=== PATIENT | male | born 1975 | race Caucasian/White ===

== ENCOUNTER 2020-11-01 20:56 | Inpatient (IN) | payer OTHER ==
[~2020-11-01] VITALS: Ht 175.3 cm; Wt 88.5 kg
[2020-11-01 21:03] VITALS: BP 107/79
[2020-11-01] MEDS ORDERED: TESSALON PERLE100 M1 PO (21:09)
[2020-11-01] MEDS ORDERED: DECADRON6 MG PO (21:10)
[2020-11-01] MEDS ORDERED: ZOFRAN ODT4 MG DISSOLVE (21:10)
[2020-11-01 21:59] LABS: BE 1.9 mmol/L (-2 to +3); PCO2 35.1 mmHg (35.0-45.0); pH 7.472 (7.340-7.450)
[2020-11-01 22:01] LABS: PO2 58.6 mmHg (75.0-100.0)
[2020-11-01 22:22] LABS: ABSOLUTE LYMPHOCYTES 0.9 thou/uL (0.8-5.3); ABSOLUTE MONOCYTES 1.2 thou/uL (0.0-1.2); ABSOLUTE NEUTROPHILS 7.4 thou/uL (1.6-8.1); BASOPHILS 0.2 %; HEMATOCRIT 39.7 % (42.0-52.0); HEMOGLOBIN 13.7 gm/dL (14.0-18.0); LYMPHOCYTES 9.3 %; MCH 28.2 pg (26.0-34.0); MCHC 34.5 g/dL (28.0-37.0); MCV 81.7 fL (80.0-100.0); MONOCYTES 12.8 %; MPV 6.9 fl. (7.2-11.1); NUCLEATED RBCS 0 /100WBC; PLATELET COUNT* 466 thou/uL (150-400); POLYS 77.7 %; RBC 4.86 mil/uL (4.50-6.00); RDW-CV 13.9 % (10.5-14.5); WBC 9.6 thou/uL (4.0-11.0)
[2020-11-01 22:31] LABS: CALCIUM 8.3 mg/dL (8.5-10.1); POTASSIUM 3.9 mmol/L (3.5-5.1)
[2020-11-01 22:36] LABS: ALBUMIN 2.9 g/dL (3.4-5.0); MAGNESIUM 2.1 mg/dL (1.8-2.4); TOTAL BILIRUBIN 0.3 mg/dL (<0.1-1.0); TOTAL PROTEIN 7.2 g/dL (6.4-8.2)
[2020-11-02 05:01] VITALS: BP 120/74
--- NOTE | 2020-11-02 09:17 | EKG ---
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
[2020-11-02 09:30] VITALS: BP 115/79
[2020-11-02 14:00] VITALS: BP 120/73
[2020-11-02 15:05] LABS: URINE BILIRUBIN NEGATIVE (Negative); URINE BLOOD NEGATIVE (Negative); URINE CLARITY CLEAR; URINE COLOR YELLOW; URINE GLUCOSE-RANDOM NEGATIVE (Negative); URINE KETONES NEGATIVE (Negative); URINE LEUKOCYTES-REFLEX NEGATIVE (Negative); URINE NITRITE-REFLEX NEGATIVE (Negative); URINE PROTEIN NEGATIVE (Negative); URINE SPECIFIC GRAVITY 1.025 (1.005-1.030); URINE UROBILINOGEN 0.2 E.U./dl (0.2-1.0)
[2020-11-02 15:25] VITALS: BP 120/73
[2020-11-02 15:40] VITALS: BP 126/76
--- NOTE | 2020-11-02 18:38 | NUR ---
RECEIVED REPORT FROM ROBERTA GARNETT. PT ARRIVED ON UNIT AROUND 1540. ADMIT DONE. IV INTACT. HEART MONITOR ATTACHED AT SR. PT UP ADLIB TOLERATED. MEDS GIVEN PER MAR. HOURLY ROUNDING PERFORMED. COVID POSITIVE. ISOLATION INTACT. NO PAIN. HOME MEDS SENT TO PHARMACY. CALL LIGHT WITH IN REACH. WILL CONTINUE TO MONITOR.
[2020-11-02 20:00] VITALS: BP 129/78
[2020-11-03 00:28] VITALS: BP 120/79
[2020-11-03 04:20] VITALS: BP 123/80
--- NOTE | 2020-11-03 05:37 | NUR ---
ASSUMED CARE OF PT AFTER REPORT AT 1930. PT A&OX4. VSS. PHYSICAL ASSESSMENT COMPLETED AND CHARTED. PT ON O2 NC6L. PT TRACING SR ON TELE. PT UPADLIB TO RESTROOM. PT DENIES ANY PAIN. MAINTAINED ON ENHANCED ISOLATION. CALL OH SPENCER.
[2020-11-03 06:08] LABS: BE 0.1 mmol/L (-2 to +3); PCO2 33.1 mmHg (35.0-45.0); PO2 66.8 mmHg (75.0-100.0); pH 7.464 (7.340-7.450)
[2020-11-03 08:00] VITALS: BP 111/70
[2020-11-03] MEDS ORDERED: DECADRON6 MG PO (09:55)
[2020-11-03 12:56] VITALS: BP 118/70
[2020-11-03 16:09] VITALS: BP 115/72
--- NOTE | 2020-11-03 19:17 | NUR ---
received report around 714. assumed care. vs and assessment as charted. iv intact. heart monitor attached sr. pt up adilb. nc 3L currently. meds given per jun. hourly rounding performed. CTA of chest done. told pt of results. updated on pt. mom updated on pt. call light with in reach.
[2020-11-03 20:00] VITALS: BP 115/77
[2020-11-04 00:46] VITALS: BP 115/72
[2020-11-04 05:59] VITALS: BP 103/65
--- NOTE | 2020-11-04 06:47 | NUR ---
ASSUMED CARE OF PT AFTER REPORT AT 1930. PT A&OX4. VSS. PHYSICAL ASSESMENT COMPLETED AND CHARTED. PT ON O2 AT 3L NC. PT TRACING SR ON TELE. PT UPADLIB TO RESTROOM. PT DENIES ANY PAIN. MAINTAINED ON ENHANCED PRECAUTION. CALL LIGHT WITHIN REACH.
[2020-11-04 08:00] VITALS: BP 115/71
[2020-11-04 12:00] VITALS: BP 119/76
--- NOTE | 2020-11-04 14:47 | NUR ---
Covid positive. Anticipate dc tomorrow. On 2L, continue to wean. Will need ex ox at dc, to determine home o2 dc needs. Pt resides at home with . Independent. No DME. No hx of HH or SNF. Following.
[2020-11-04 16:12] VITALS: BP 125/78
--- NOTE | 2020-11-04 17:42 | NUR ---
RECEIVED REPORT AROUND 0715. ASSUMED CARE. VS AND ASSESSMENT CHARTED. IV INTACT. HEART MONITOR ATTACHED AT SR. ISOLATION INTACT. MEDS GIVEN PER JUN. HOURLY ROUNDING PERFORMED. 3L NC. UP ADLIB. POSSIBLE D/C TOMORROW. CALL LIGHT WITH IN REACH. WILL CONTINUE TO MONITOR. NO PAIN THIS SHIFT.
[2020-11-04 19:45] VITALS: BP 128/76
[2020-11-05 00:43] VITALS: BP 128/84
[2020-11-05 04:06] LABS: HEMATOCRIT 34.5 % (42.0-52.0); HEMOGLOBIN 11.7 gm/dL (14.0-18.0); MCH 27.7 pg (26.0-34.0); MCHC 33.9 g/dL (28.0-37.0); MCV 81.8 fL (80.0-100.0); MPV 6.8 fl. (7.2-11.1); NUCLEATED RBCS 0 /100WBC; PLATELET COUNT* 452 thou/uL (150-400); RBC 4.21 mil/uL (4.50-6.00); RDW-CV 13.5 % (10.5-14.5); WBC 16.8 thou/uL (4.0-11.0)
[2020-11-05 04:14] LABS: ALBUMIN 2.1 g/dL (3.4-5.0); CALCIUM 7.9 mg/dL (8.5-10.1); CREATININE 0.8 mg/dL (0.6-1.3); POTASSIUM 4.1 mmol/L (3.5-5.1); TOTAL BILIRUBIN 0.4 mg/dL (<0.1-1.0); TOTAL PROTEIN 5.9 g/dL (6.4-8.2)
[2020-11-05 04:43] VITALS: BP 116/77
--- NOTE | 2020-11-05 04:58 | NUR ---
PT SLEPT MOST OF SHIFT. ASSESSMENT DOCUMENTED. MEDS GIVEN PER E-MAR. IV PATENT, FLUIDS INFUSING. TYLENOL GIVEN FOR BACK PAIN. PT TITRATED TO ROOM AIR WHILE RESTING AND SLEEPING. ISOLATION MAINTAINED. PT ABLE TO MAKE NEEDS KNOWN, WILL CONTINUE WITH PLAN OF CARE.
[2020-11-05 05:00] LABS: ABSOLUTE LYMPHOCYTES 0.7 thou/uL (0.8-5.3); ABSOLUTE MONOCYTES 0.3 thou/uL (0.0-1.2); ABSOLUTE NEUTROPHILS 15.8 thou/uL (1.6-8.1); METAMYELOCYTES 1 %; PLATELET ESTIMATE ADEQUATE
[2020-11-05 08:00] VITALS: BP 114/80
[2020-11-05] MEDS ORDERED: DEXAMETHASONE6 MG PO (09:47)
--- NOTE | 2020-11-05 12:46 | NUR ---
Pt medically stable to dc to home today with home o2. CM faxed o2 referral to Aby at [facility], await approve and delivery of o2 tank. No other needs.
[2020-11-05 13:48] VITALS: BP 114/80
--- NOTE | 2020-11-05 14:45 | NUR ---
RECEIVED REPORT AROUND 0715. ASSUMED CARE. VS AND ASSESSMENT CHARTED. IV INTACT THIS AM. HEART MONITOR ATTACHED THIS AM AT SR. PT ROOM AIR. REST AND EXERCISE DONE. REQUIRED O2 3L ON EXCERSION. DISCHARGE ORDERS RECEIVED. MEDS GIVEN PER JUN. HOURLY ROUNDING PERFORMED. IV TAKEN OUT. HEART MONITOR OFF. DISCHARGE PACKET GIVEN TO PT. COMMUNICATED UNDERSTANDING. O2 SET UP THROUGH CASE MANAGEMENT. O2 TANK GIVEN TO PT. PT LEFT UNIT VIA WHEEL CHAIR WITH ALL BELONGINGS AND NURSING STAFF AT 1445.
== END 2020-11-05 14:45 | disposition home or self-care (01) | DRG 177 ==
LOC: M.ERS 20:56 → M.ORTHSURG 11-02 00:20 → M.TBA-ER 11-02 00:20 → M.ORTHSURG 11-02 15:44
PROVIDERS: Internal Medicine; Personal Emergency Response Attendant; ADMIT Internal Medicine; ATTEND Internal Medicine
PROC: XW033E5 Introduction of Remdesivir Anti-infective into Peripheral Vein, Percutaneous Approach, New Technology Group 5 (ICD-10-PCS; principal; 2020-11-03)
DX: U07.1 COVID-19 (principal); J12.82 Pneumonia due to coronavirus disease 2019; J96.01 Acute respiratory failure with hypoxia; E87.3 Alkalosis; Z79.899 Other long term (current) drug therapy; Z87.891 Personal history of nicotine dependence

== ENCOUNTER 2020-11-16 11:49 | Inpatient (IN) | payer OTHER ==
[~2020-11-16] VITALS: Ht 175.3 cm; Wt 90.7 kg
--- NOTE | ~2020-11-16 | CON ---
[address] [address] CONSULTATION Name: FILIBERTO RG Room: [address] IN .R.#: [id number] Admission: 11/16/20 Attend Phys: Lori Mcnally Discharge: Date of : 71 Report #: [id number] THIS REPORT FOR: cc: Venecia Oden Kathryn DO Pervez, Adeel MD ~ DATE OF CONSULTATION: 11/17/2020 REQUESTING PHYSICIAN: Pankaj Lozano DO. INDICATION FOR CONSULTATION: Acute pulmonary emboli. HISTORY OF PRESENT ILLNESS: A 45-year-old gentleman, past medical history is as mentioned below. He is a lifetime nonsmoker, does not have a previous history of a cardiac or respiratory disease. The patient was recently admitted to this hospital and was treated for COVID-19. Initially was diagnosed he states with COVID-19 on 10/20. He is now admitted again with increasing shortness of breath. He has also had chest pain with respiration and coughing. He has had a cough. There is not much sputum. He does not have upper respiratory complaints. There is no swelling of lower extremities. REVIEW OF SYSTEMS: Negative for 12 points except as mentioned above. PAST MEDICAL HISTORY: Recent COVID-19 as above. SOCIAL HISTORY: Lifetime nonsmoker. No known history of heavy alcohol use or illegal drug use. CURRENT MEDICATIONS: List in [employer] reviewed. HOME MEDICATIONS: He briefly received azithromycin and remdesivir during the last hospitalization. He was discharged on dexamethasone. He was not on antibiotics upon discharge. FAMILY HISTORY: No pertinent family history. PHYSICAL EXAMINATION: GENERAL: Alert, awake and oriented, does not appear to be in any distress. VITAL SIGNS: Has a pulse of 85 and a blood pressure of 119/79, saturating 94%. He is on room air. His respiratory rate is 16-17. He is afebrile. HEENT: Head is normocephalic and atraumatic. NECK: Does not show raised JVP. Chest is clear to auscultation. HEART: [place] [id number] CONSULTATION Name: FILIBERTO RG Room: [address] IN [facility]#: [id number] Admission: 11/16/20 Attend Phys: Lori Mcnally Discharge: Date of : 71 Report #: [id number] ABDOMEN: Soft and nontender. EXTREMITIES: Lower extremities show no edema and no calf tenderness. LABORATORY DATA: Chest x-ray and CTA chest are reviewed. I reviewed the films of both the studies above myself. ASSESSMENT AND PLAN: 1. Acute pulmonary emboli. I agree with anticoagulation. This can be switched over to oral. Recommend continuing with anticoagulation for the next 3 months, at which point recommend doing a CTA chest again and then we will reassess duration of therapy. I will be happy to see the patient again in about 3 months in the office and follow up on this. Recommend obtaining venous Dopplers. Also recommend obtaining an echocardiogram. If not otherwise indicated per the echo and venous Doppler results, then it is okay for the patient to be discharged tomorrow morning from a pulmonary point of view. 2. Pulmonary infiltrates. He has had recent COVID-19; however, some of the infiltrates are lobar; therefore, I agree with antibiotics. He is currently on Zithromax as well as ceftriaxone. May consider switching this over to oral Levaquin upon discharge. May consider a total of 7 days of therapy including the days he receives in the hospital. 3. Recent COVID-19. I agree with dexamethasone considering the development of acute pulmonary emboli as above. I suggest gradually tapering dexamethasone over the next 2 weeks. Dexamethasone can be switched over to oral. Thanks for this consultation. By: 1650 [id number] Prince MD /nt
[~2020-11-16 11:49] MED LIST: DECADRON6 MG PO; DEXAMETHASONE6 MG PO; TESSALON PERLE100 M1 PO; ZOFRAN ODT4 MG DISSOLVE
[2020-11-16 11:56] VITALS: BP 114/79
[2020-11-16 12:21] LABS: HEMATOCRIT 45.8 % (42.0-52.0); HEMOGLOBIN 14.5 gm/dL (14.0-18.0); MCH 26.6 pg (26.0-34.0); MCHC 31.7 g/dL (28.0-37.0); MCV 83.8 fL (80.0-100.0); MPV 7.2 fl. (7.2-11.1); NUCLEATED RBCS 0 /100WBC; PLATELET COUNT* 536 thou/uL (150-400); RBC 5.47 mil/uL (4.50-6.00); RDW-CV 14.3 % (10.5-14.5); WBC 20.6 thou/uL (4.0-11.0)
[2020-11-16 12:32] LABS: ANION GAP 11 mmol/L (7-16); BUN 25 mg/dL (7-18); CHLORIDE 104 mmol/L (98-107); CO2 24 mmol/L (21-32); CREATININE 1.2 mg/dL (0.6-1.3); GLUCOSE 142 mg/dL (70-99); POTASSIUM 4.3 mmol/L (3.5-5.1); SODIUM 139 mmol/L (136-145)
[2020-11-16 12:44] LABS: ALBUMIN 2.8 g/dL (3.4-5.0); ALKALINE PHOSPHATASE 61 U/L (46-116); CALCIUM 8.4 mg/dL (8.5-10.1); CK-MB MASS < 0.5 ng/mL (<0.5-3.6); LIPASE 231 U/L (73-393); MAGNESIUM 2.3 mg/dL (1.8-2.4); NT-PRO BRAIN NAT PEPTIDE 412 pg/mL (<300); SGOT 15 U/L (15-37); SGPT 98 U/L (30-65); TOTAL BILIRUBIN 0.2 mg/dL (<0.1-1.0)
[2020-11-16 13:02] LABS: ABSOLUTE EOSINOPHILS 0.2 thou/uL (0.0-0.7); ABSOLUTE LYMPHOCYTES 3.1 thou/uL (0.8-5.3); ABSOLUTE MONOCYTES 1.4 thou/uL (0.0-1.2); ABSOLUTE NEUTROPHILS 15.9 thou/uL (1.6-8.1); PLATELET ESTIMATE INCREASED
[2020-11-16 14:04] LABS: APTT 24.6 Seconds (25.0-31.3); INR 0.9; PROTIME 9.8 Seconds (9.20-11.50)
[2020-11-16 18:45] VITALS: BP 101/67
[2020-11-16 22:45] VITALS: BP 103/62
[2020-11-17 02:44] VITALS: BP 109/77
[2020-11-17 06:31] VITALS: BP 113/65
[2020-11-17 08:08] LABS: HEMATOCRIT 38.6 % (42.0-52.0); HEMOGLOBIN 12.9 gm/dL (14.0-18.0); MCH 28.1 pg (26.0-34.0); MCHC 33.5 g/dL (28.0-37.0); MCV 83.7 fL (80.0-100.0); MPV 7.2 fl. (7.2-11.1); RBC 4.61 mil/uL (4.50-6.00); RDW-CV 14.4 % (10.5-14.5)
[2020-11-17 08:41] LABS: ALBUMIN 2.6 g/dL (3.4-5.0); ALKALINE PHOSPHATASE 45 U/L (46-116); ANION GAP 8 mmol/L (7-16); BUN 20 mg/dL (7-18); CALCIUM 8.3 mg/dL (8.5-10.1); CHLORIDE 104 mmol/L (98-107); CO2 27 mmol/L (21-32); CREATININE 0.9 mg/dL (0.6-1.3); GLUCOSE 113 mg/dL (70-99); POTASSIUM 4.1 mmol/L (3.5-5.1); SGOT 17 U/L (15-37); SGPT 78 U/L (30-65); SODIUM 139 mmol/L (136-145); TOTAL BILIRUBIN 0.2 mg/dL (<0.1-1.0); TOTAL PROTEIN 6.3 g/dL (6.4-8.2); TROPONIN-I LEVEL <0.06 ng/mL (<0.06)
--- NOTE | 2020-11-17 09:15 | EKG ---
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 : 1975 Requested By: Samuel Hager Order Number: [id number] MD: Brian Gray Measurements Intervals [place] Rate: 108 P: 78 [place]: 107 QRS: 22 QRSD: 90 T: 24 QT: 324 QTc: 435 Interpretive Statements Sinus tachycardia Probable left atrial enlargement Baseline wander in lead(s) II,III,aVR,aVF,V3,V4,V5,V6 Compared to ECG 11/01/2020 22:02:45 Sinus rhythm no longer present Electronically Signed On 11-17-2020 9:15:41 CDT by Brian Gray [email or web address] <ELECTRONICALLY SIGNED> By: Brian Gray MD, [facility] 11/17/20 0915 1205 120 Brian Gray MD, [facility] /EPI
[2020-11-17 09:18] VITALS: BP 113/72
[2020-11-17 12:00] VITALS: BP 113/68
[2020-11-17 16:00] VITALS: BP 119/79
[2020-11-17 20:00] VITALS: BP 112/69
--- NOTE | 2020-11-17 20:00 | NUR ---
RECEIVED REPORT AND ASSUMED CARE OF PT, ASSESSMENT COMPLETED. HOB ELEVATED, O2 ON AT 3L/NC, HAVING SOA WITH ACTIVITY. HEPARIN GTT INFUSING PER PUMP. PT DENIES OTHER COMPLAINTS. TELEMETRY ON SHOWING SR. WILL CONT TO MONITOR AND ASSIST NEEDED.
[2020-11-18 01:41] VITALS: BP 111/66
[2020-11-18 05:45] VITALS: BP 105/68
--- NOTE | 2020-11-18 07:07 | NUR ---
AWAKE OCC DURING NIGHT FOR CARE. HEPARIN GTT CONT. PTT WITHIN NORMAL LIMITS THIS AM SO NO CHANGE. TELEMETRY ON SHOWING SR. DID C/O RT RIB PAIN X1 BUT THINKS HE TWISTED WRONG. HS GOALS OF REST AND SAFETY ACHIEVED. HOURLY ROUNDING OBSERVED.
[2020-11-18 08:00] VITALS: BP 110/75
[2020-11-18] MEDS ORDERED: XARELTO15 MG PO (10:29)
[2020-11-18] MEDS ORDERED: PROAIR HFA8.5 GM INH (10:32)
[2020-11-18] MEDS ORDERED: LEVOFLOXACIN500 MG PO (10:32)
[2020-11-18] MEDS ORDERED: PREDNISONE 10 M10 MG PO (10:32)
[2020-11-18 11:41] VITALS: BP 110/75
[2020-11-18 12:00] VITALS: BP 111/66
--- NOTE | 2020-11-18 12:31 | NUR ---
ASSUMED CARE OF PT AT 0730. A&0X4, DENIES ANY PAIN OR SHORTNESS OF BREATH AT THIS TIME. TRACING SB/SR ON THE CARPENTRY SPECIALIST. ON 3L NC SAT MID 90'S. PT UP WITH SBA TO BATHROOM. HEPARIN GTT DC'D LATE MORNING AND TRANSITIONING TO PO XARELTO-REFER TO EMAR. PT GOAL FOR TODAY IS COMPLETE ECHO AND BILATERAL VENOUS US AND THEN DISCHARGE PLANNING TO HOME AFTER. AM ASSESSMENT CHARTED. MEDICATIONS PER JUN. PT REPOSITIONS SELF. HOURLY ROUNDING OBSERVED. BED IN LOW POSITION. CALL LIGHT WITHIN REACH. WILL CONTINUE PLAN OF CARE.
--- NOTE | 2020-11-18 13:06 | NUR ---
Nutrition: consult for "weight". 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 Prealbumin 42.7, BUN 20. Vit C, dexamethasone and other meds reivewed. Assessed at low nutrition risk.
--- NOTE | 2020-11-18 15:01 | NUR ---
PT HAD ECHO AND VENOUS ULTRASOUND. OK FOR DISCHARGE. DISCHARGE ORDERS RECEIVED. DISCHARGE INSTRUCTIONS, CARE NOTES, E SCRIPTS AND FOLLOW UP APPTS GIVEN TO PT. PT COMMUNICATES UNDERSTANDING OF DISCHARGE TEACHING. BOTH IV'S AND DEAF TEACHER REMOVED. PT DISCHARGED WITH ALL BELONGINGS AND PAPERWORK VIA WHEELCHAIR WITH NURSING STAFF TO SPOUSE OWN PERSONAL VEHICLE.
--- NOTE | 2020-11-18 15:12 | 2DMMODE ---
[place] [address] 2 D/M-MODE ECHOCARDIOGRAM Name: FILIBERTO RG Room: [address] IN [facility].#: [id number] Admission: 11/16/20 Attend Phys: Pankaj Lozano Discharge: 11/18/20 Date of : 71 Date of Service: 11/18/20 1512 Report #: [id number] THIS REPORT FOR: cc: Venecia Oden,Venecia Banuelos,Brian Fox MD [facility] ~ APPROVED REPORT Study performed: 11/18/2020 13:55:50 EXAM: Comprehensive 2D, Doppler, and color-flow Echocardiogram Patient Location: In-Patient Room #: [facility] Status: routine BSA: 2.07 HR: 77 bpm BP: 110/75 mmHg Rhythm: NSR Other Information Study Quality: Excellent Indications Congestive Heart Failure 2D Dimensions IVSd: 10.52 (7-11mm) LVOT Diam: 21.57 (18-24mm) LVDd: 50.03 mm PWd: 9.66 (7-11mm) Ascending Ao: 29.94 (22-36mm) LVDs: 26.57 (25-40mm) Aortic Root: 32.09 mm Volumes Left Atrial Volume (Systole) LA ESV Index: 28.30 mL/m2 Aortic Valve AoV Peak Gordon.: 1.21 m/s AO Peak Gr.: 5.86 mmHg LVOT Max P.56 mmHg AO Mean Gr.: 2.90 mmHg LVOT Mean P.33 mmHg LVOT Max V: 1.18 m/s AO V2 VTI: 20.57 cm LVOT Mean V: 0.68 m/s GERI (VTI): 4.09 cm2 LVOT V1 VTI: 23.04 [place] [address] 2 D/M-MODE ECHOCARDIOGRAM Name: FILIBERTO RG Room: [address]#: [id number] Admission: 11/16/20 Attend Phys: Pankaj Lozano Discharge: 11/18/20 Date of : 71 Date of Service: 11/18/20 1512 Report #: [id number] Mitral Valve E/A Ratio: 1.73 MV Decel. Time: 147.11 ms MV E Max Gordon.: 0.78 m/s MV PHT: 42.66 ms MVA (PHT): 5.16 cm2 TDI E/Lateral E': 6.50 E/Medial E': 6.50 Medial E' Gordon.: 0.12 m/s Lateral E' Gordon.: 0.12 m/s Pulmonary Valve PV Peak Gordon.: 1.38 m/s PV Peak Gr.: 7.66 mmHg Tricuspid Valve RAP Estimate: 5.00 mmHg TR Peak Gr.: 20.67 mmHg RVSP: 25.00 mmHg PA Pressure: 25.00 mmHg Left Ventricle The left ventricle is normal size. There is normal LV segmental wall motion. There is normal left ventricular wall thickness. Left ventricular systolic function is normal. The left ventricular ejection fraction is within the normal range. LVEF is 60-65%. Right Ventricle The right ventricle is normal size. The right ventricular systolic function is normal. Atria The left atrium size is normal. The right atrium size is normal. Aortic Valve The aortic valve is normal in structure. No aortic regurgitation is present. There is no aortic valvular stenosis. Mitral Valve The mitral valve is normal in structure. Trace mitral regurgitation. No evidence of mitral valve stenosis. Tricuspid Valve The tricuspid valve is normal in structure. Trace tricuspid regurgitation. [place] [address] 2 D/M-MODE ECHOCARDIOGRAM Name: FILIBERTO RG Room: [address]#: [id number] Admission: 11/16/20 Attend Phys: Pankaj Lozano Discharge: 11/18/20 Date of : 71 Date of Service: 11/18/20 1512 Report #: [id number] Pulmonic Valve The pulmonary valve is normal in structure. Mild pulmonic regurgitation. Great Vessels The aortic root is normal in size. IVC is normal in size and collapses >50% with inspiration. Pericardium There is no pericardial effusion. <Conclusion> Left ventricular systolic function is normal. The left ventricular ejection fraction is within the normal range. <ELECTRONICALLY SIGNED> By: Brian Gray MD, [facility] 11/18/20 151 11 11 Brian Gray MD, FAC /INF
--- NOTE | 2020-11-19 11:41 | CON ---
[address] [address] CONSULTATION Name: FILIBERTO RG Room: [address] IN M.R.#: [id number] Admission: 11/16/20 Attend Phys: Lori Mcnally Discharge: 11/18/20 Date of : 71 Report #: [id number] THIS REPORT FOR: cc: Venecia Oden Kathryn DO Blick,Brian Fox MD [facility] ~ DATE OF CONSULTATION: 11/18/2020 HISTORY OF PRESENT ILLNESS: The patient is a 45-year-old white male who I was asked to see in the hospital today after he complained of chest pain. The patient has no previous history of heart disease. 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 He stays very active. This past year, he was exposed to COVID-19. Several weeks ago, he was admitted to [place] with loss of smell and taste. He had a fever. He was coughing, had loose stools. He felt ill for about 10 days. He was finally admitted with shortness of breath. He was admitted here to [place] [facility] for about 5 days and then discharged on steroids. After discharge, he notes his heart was racing. He still has some shortness of breath. He also notes a pressure in his chest. It is difficult to take a deep breath. Chest pressure is worse with any movement. There is no radiation down his arms. He felt he had no diaphoresis or nausea. He finally came to the hospital 2 days ago and was found to have evidence of pulmonary embolus. He was anticoagulated. Cardiology consultation requested. He denies a previous history of exertional chest tightness. He has had no pain in his legs. PAST MEDICAL HISTORY: He has had no surgical procedures. No history of hypertension, diabetes, previous cholesterol was 217. He is on no medication. ALLERGIES: No known drug allergies. SOCIAL HISTORY: He is . He and his live in [place]. 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 Quit smoking 20 years ago, rarely drinks alcohol. REVIEW OF SYSTEMS: No history of stroke, asthma, liver disease, kidney disease, cancer, psychiatric illness, chronic skin condition. PHYSICAL EXAMINATION: GENERAL: Revealed a middle-aged male, appeared in no distress. VITAL SIGNS: He had a blood pressure of 110/70, pulse is 80, he is afebrile. HEENT: He was anicteric. Conjunctivae pink. Mucous membranes are moist. NECK: Veins not distended. No carotid bruits. NECK: Supple. CHEST: Clear to auscultation. HEART: Regular rate [place] [address] CONSULTATION Name: FILIBERTO RG Room: [address] IN [facility]#: [id number] Admission: 11/16/20 Attend Phys: Lori Mcnally Discharge: 11/18/20 Date of : 71 Report #: [id number] ABDOMEN: Soft. EXTREMITIES: Had no edema. Posterior tibial pulse 2+ bilaterally. SKIN: Cool and dry. There is no Homans signs. PSYCHIATRIC: His mood is appropriate. LABORATORY DATA: His ECG on admission showed a sinus rhythm with no significant ST or T-wave changes. His workup, he had a portable chest x-ray on admission that showed patchy opacities consistent with COVID pneumonia. He underwent a CT scan of the chest that showed multiple pulmonary embolus, infiltrated lung changes. His lab work, sodium 139, creatinine 0.9. SGPT 78, SGOT 17, albumin 2.6. Troponins were all less than 0.06. BNP 412. D-dimer 1.6, hemoglobin 12.9. His COVID antigen stat test was positive. IMPRESSION AND RECOMMENDATIONS: 1. Chest pain. Atypical for angina. I think it is reasonable to discharge the patient and I would recommend a stress echocardiogram when the patient recovers from COVID-19. 2. COVID-19 pneumonia. 3. Pulmonary embolus. The patient is anticoagulated. 4. History of hyperlipidemia. 5. Previous tobacco abuse. <ELECTRONICALLY SIGNED> By: Brian Gray MD, FACC 11/19/20 1141 1024 2036Dastefan Gray MD, FACC /nt
== END 2020-11-18 15:01 | disposition home or self-care (01) | DRG 871 ==
LOC: M.ERS 11:49 → M.TBA-ER 13:48 → M.2W 13:48
PROVIDERS: Family Medicine; ADMIT Internal Medicine; ATTEND Internal Medicine
DX: A41.9 Sepsis, unspecified organism (principal); I26.99 Other pulmonary embolism without acute cor pulmonale; J18.9 Pneumonia, unspecified organism; E78.5 Hyperlipidemia, unspecified; Z20.822 Contact with and (suspected) exposure to COVID-19; I20.9 Angina pectoris, unspecified; Z79.899 Other long term (current) drug therapy; B94.8 Sequelae of other specified infectious and parasitic diseases

== ENCOUNTER → 2021-02-25 | Outpatient (CLI) | payer OTHER ==
[~2021-02-25] MED LIST changes: +LEVOFLOXACIN500 MG PO; +PREDNISONE 10 M10 MG PO; +PROAIR HFA8.5 GM INH; +XARELTO15 MG PO
[2021-02-25 08:29] LABS: ABSOLUTE BASOPHILS 0.1 thou/uL (0.0-0.2); ABSOLUTE EOSINOPHILS 0.1 thou/uL (0.0-0.7); ABSOLUTE LYMPHOCYTES 1.9 thou/uL (0.8-5.3); ABSOLUTE MONOCYTES 0.5 thou/uL (0.0-1.2); ABSOLUTE NEUTROPHILS 2.3 thou/uL (1.6-8.1); BASOPHILS 1.1 %; EOSINOPHILS 2.3 %; HEMATOCRIT 41.3 % (42.0-52.0); HEMOGLOBIN 13.9 gm/dL (14.0-18.0); LYMPHOCYTES 39.1 %; MCH 28.2 pg (26.0-34.0); MCHC 33.6 g/dL (28.0-37.0); MCV 83.9 fL (80.0-100.0); MONOCYTES 10.7 %; MPV 7.3 fl. (7.2-11.1); NUCLEATED RBCS 0 /100WBC; PLATELET COUNT* 330 thou/uL (150-400); POLYS 46.8 %; RBC 4.93 mil/uL (4.50-6.00); WBC 4.9 thou/uL (4.0-11.0)
[2021-02-25 08:32] LABS: CALCIUM 8.6 mg/dL (8.5-10.1); MAGNESIUM 2.2 mg/dL (1.8-2.4); POTASSIUM 4.2 mmol/L (3.5-5.1)
== END ==
LOC: M.CT 02-17 13:53 → M.LAB 08:00 → M.CT 09:00
PROVIDERS: ATTEND Internal Medicine Critical Care Medicine
DX: J84.89 Other specified interstitial pulmonary diseases (principal); I26.99 Other pulmonary embolism without acute cor pulmonale; R91.8 Other nonspecific abnormal finding of lung field

== ENCOUNTER 2021-04-10 09:22 | Emergency (ER) | payer OTHER ==
[~2021-04-10] VITALS: Ht 175.3 cm; Wt 95.3 kg
[2021-04-10 12:55] VITALS: BP 135/81
== END 2021-04-10 12:55 | disposition home or self-care (01) ==
LOC: M.ERS 09:22
DX: M79.604 Pain in right leg (principal); J45.909 Unspecified asthma, uncomplicated; Z79.899 Other long term (current) drug therapy